=== PATIENT | male | born 1995 | race Caucasian/White ===

== ENCOUNTER 2023-12-10 16:16 | Emergency (ER) | payer OTHER ==
[~2023-12-10] VITALS: Ht 177.8 cm; Wt 99.0 kg
[2023-12-10] MEDS ORDERED: KETOROLAC TROMETHAMINE 30 MG/ML SDV IM ONE (17:00)
[2023-12-10] MEDS ORDERED: METHOCARBAMOL 500 MG/TAB PO ONE (17:00)
[2023-12-10] MEDS ORDERED: DEXAMETHASONE SOD. PHOSPHATE 10 MG/ML VIAL IM ONE (17:00)
[2023-12-10] MEDS ORDERED: METHOCARBAMOL500 MG PO (18:50)
[2023-12-10] MEDS ORDERED: PREDNISONE10 MG PO (18:50)
[2023-12-10] MEDS ORDERED: NAPROXEN500 MG PO (18:50)
[2023-12-10 19:17] VITALS: BP 124/82
== END 2023-12-10 19:17 | disposition home or self-care (01) | DRG 552 ==
LOC: ED 16:16
DX: M54.6 Pain in thoracic spine (principal); V49.40XA Driver injured in collision with unspecified motor vehicles in traffic accident, initial encounter; M48.04 Spinal stenosis, thoracic region